=== PATIENT | male | born 1940 | race Caucasian/White ===

== ENCOUNTER → 2017-09-28 | Outpatient (CLI) | payer OTHER | LOC: M.RAD 09:53 | DX: R05 Cough (principal); R06.02 Shortness of breath; K44.9 Diaphragmatic hernia without obstruction or gangrene; Z98.890 Other specified postprocedural states ==

== ENCOUNTER → 2018-02-15 | Outpatient (CLI) | payer OTHER | LOC: M.RAD 13:15 | DX: K44.9 Diaphragmatic hernia without obstruction or gangrene (principal) ==

== ENCOUNTER 2019-02-06 20:48 | Inpatient (IN) | payer OTHER ==
[~2019-02-06] VITALS: Ht 170.2 cm; Wt 76.7 kg
--- NOTE | ~2019-02-06 | EEG ---
[address] [address] EEG STUDY REPORT Name: MISTY GARCIA Gus Room: [address] IN M.R.#: [id number] Admission: 02/06/19 Attend Phys: Edinson Rincon MD Discharge: Date of : 40 Report #: [id number] THIS REPORT FOR: //name// CC: Edinson Rincon Meño Hernandez DATE OF SERVICE: 02/07/2019 This patient is being evaluated for slurred speech. EEG was done by placing the electrode by standard 10-20 system of electrode placement. Both referential and sequential montages were used for recording. Background activity in this patient's EEG is about 10 Hz and 30 microvolt. The patient became drowsy that is associated with bilateral slowing. Photic stimulation was unremarkable. Throughout the record, no active epileptiform activity was noticed. IMPRESSION: This patient's EEG is unremarkable. Thank you very much for this referral. By: [id number] Squires MD /nt
[2019-02-06 20:59] VITALS: BP 165/96
[2019-02-06 21:15] LABS: ABSOLUTE EOSINOPHILS 0.2 thou/uL (0.0-0.7); ABSOLUTE LYMPHOCYTES 1.7 thou/uL (0.8-5.3); ABSOLUTE MONOCYTES 0.6 thou/uL (0.0-1.2); ABSOLUTE NEUTROPHILS 3.7 thou/uL (1.6-8.1); BASOPHILS 0.6 %; EOSINOPHILS 2.6 %; HEMATOCRIT 47.4 % (42.0-52.0); HEMOGLOBIN 16.5 gm/dL (14.0-18.0); LYMPHOCYTES 27.8 %; MCH 31.9 pg (26.0-34.0); MCHC 34.7 g/dL (28.0-37.0); MCV 91.9 fL (80.0-100.0); MONOCYTES 9.2 %; MPV 9.4 fl. (7.2-11.1); NUCLEATED RBCS 0 /100WBC; PLATELET COUNT* 199 thou/uL (150-400); POLYS 59.8 %; RBC 5.15 mil/uL (4.50-6.00); RDW-CV 13.2 % (10.5-14.5); WBC 6.2 thou/uL (4.0-11.0)
[2019-02-06 21:27] LABS: APTT 48.8 Seconds (25.0-31.3); INR 3.2; PROTIME 32.8 Seconds (9.20-11.50)
[2019-02-06 21:31] LABS: POTASSIUM 3.6 mmol/L (3.5-5.1)
[2019-02-06 21:36] LABS: ALBUMIN 3.8 g/dL (3.4-5.0); TOTAL BILIRUBIN 0.9 mg/dL (<0.1-1.0)
[2019-02-06] MEDS ORDERED: NORVASC5 MG PO (22:01)
[2019-02-06] MEDS ORDERED: KEPPRA750 MG PO (22:01)
[2019-02-06] MEDS ORDERED: COUMADIN 5 MG TA5 M1 PO (22:02)
[2019-02-06] MEDS ORDERED: ZONEGRAN50 MG PO (22:02)
[2019-02-06] MEDS ORDERED: PRILOSEC OTC20 MG PO (22:02)
[2019-02-06 23:42] VITALS: BP 126/86
[2019-02-07] VITALS: BP 140/83
[2019-02-07 04:00] VITALS: BP 132/80
[2019-02-07 05:21] LABS: CHOLESTEROL 220 mg/dL (<200); HDL CHOLESTEROL 48 mg/dL (>40); LDL CHOLESTEROL 148 mg/dL (<100); TC:HDL 4.6 Ratio (Not establshd); TRIGLYCERIDE 123 mg/dL (<150); VLDL 25 mg/dL (<40)
[2019-02-07 05:24] LABS: SERUM ASSESSMENT Clear
--- NOTE | 2019-02-07 06:07 | NUR ---
PT ARRIVED FROM ER AROUND MIDNIGHT. ASSESSMENT COMPLETED CHARTED. PT RESTING IN BED AT THIS TIME. NO C/O PAIN OR DISCOMFORT. NIH HAS BEEN AROUND 15 ALL NIGHT DUE TO RIGHT HEMIPARISIS, RIGHT FACIAL DROOP, AND APHASIA. ABLE TO MAKE NEEDS KNOWN WITH SOME CLARIFICATION, HARD OF HEARING. Q2TURN TO PREVENT BREAKDOWN. AT BEDSIDE, HELPING PT CALL OUT IF NEEDED. NPO DUE TO FALLED SWALLOW SCREEN. WILL CONTINUE TO MONITOR.
[2019-02-07 08:00] VITALS: BP 132/80
--- NOTE | 2019-02-07 10:19 | NUR ---
ASSUMED CARE OF PATIENT THIS AM AT 0730. PATIENT IS ALERT AND ORIENTED X 4. HE DENIES PAIN THIS AM. RIGHT SIDE FLACCID. NIH SCORE 12 THIS AM. TELE SHOWS NSR. PATIENT TURNED Q 2 HR. SPEECH THERAPY IN TO SEE PATIENT AND REGULAR DIET WITH NECTAR THICK LIQUID RECOMMENDED. PATIENT GIVEN PO MEDICATIONS WITH APPLESAUCE. IS IN AT THE BEDSIDE. DR WHITE IN TO ROUND. MRI MRA CANCELLED PATIENT IS UNABLE TO HAVE TEST. WILL CONTINUE TO MONITOR VS AND ASSESSMENTS.
--- NOTE | 2019-02-07 10:57 | EKG ---
[place] [address] ELECTROCARDIOGRAM REPORT Name: MISTY GARCIA Room: [address] ADM IN M.R.#: [id number] Admission: 02/06/19 Attend Phys: Edinson Rincon MD Discharge: Date of : 40 Report #: [id number] THIS REPORT FOR: //name// [facility] ED Test Date: 2019-02-06 Test Time: 21:13:58 Pat Name: MISTY GARCIA Department: Room: [facility] Gender: M Sound Controller: [place] : 1940 Requested By: Rian Maria Order Number: [id number] MD: Adrien Coyle Measurements Intervals [place] Rate: 70 P: 37 VA: 188 QRS: 47 QRSD: 132 T: 3 QT: 443 QTc: 479 Interpretive Statements Sinus rhythm Probable left atrial enlargement Nonspecific intraventricular conduction delay Borderline T abnormalities, inferior leads No previous ECG available for comparison Electronically Signed On 02-07-2019 10:57:13 CDT by Adrien Coyle [email or web address] <ELECTRONICALLY SIGNED> By: Adrien Coyle MD, [facility] 02/07/19 1057 12 12 Adrien Coyle MD, [facility] /EPI
--- NOTE | 2019-02-07 13:43 | 2DMMODE ---
[place] [address] 2 D/M-MODE ECHOCARDIOGRAM Name: MISTY GARCIA Room: [address] IN [facility]#: [id number] Admission: 02/06/19 Attend Phys: Edinson Rincon, Discharge: Date of : 40 Date of Service: 02/07/19 1342 Report #: [id number] THIS REPORT FOR: //name// APPROVED REPORT Study performed: 02/07/2019 11:23:25 EXAM: Comprehensive 2D, Doppler, and color-flow Echocardiogram Patient Location: In-Patient Room #: [facility] Status: routine BSA: 1.88 HR: 60 bpm BP: 132/80 mmHg Rhythm: NSR Other Information Study Quality: Good Indications CVA/TIA Echo Enhancing Agent Indication: Rule out Shunt Agent(s) / Amount(s) Used: Agitated Saline 10 cc 2D Dimensions IVSd: 8.75 (7-11mm) LVOT Diam: 21.30 (18-24mm) LVDd: 53.00 mm PWd: 11.42 (7-11mm) Ascending Ao: 38.14 (22-36mm) LVDs: 35.71 (25-40mm) Aortic Root: 38.42 mm Volumes Left Atrial Volume (Systole) LA ESV Index: 53.60 mL/m2 Aortic Valve AoV Peak Giuseppe.: 1.39 m/s AO Peak Gr.: 7.77 mmHg LVOT Max P.33 mmHg AO Mean Gr.: 4.09 mmHg LVOT Mean P.51 mmHg LVOT Max V: 0.91 m/s AO V2 VTI: 26.69 cm LVOT Mean V: 0.56 m/s REMY (VTI): 2.31 cm2 LVOT V1 VTI: 17.28 [place] [address] 2 D/M-MODE ECHOCARDIOGRAM Name: MISTY GARCIA Room: [address] IN .R.#: [id number] Admission: 02/06/19 Attend Phys: Edinson Rincon, Discharge: Date of : 40 Date of Service: 02/07/19 1342 Report #: [id number] Mitral Valve E/A Ratio: 0.53 MV Decel. Time: 242.42 ms MV E Max Giuseppe.: 0.61 m/s MV PHT: 70.30 ms MVA (PHT): 3.13 cm2 TDI E/Lateral E': 15.25 E/Medial E': 12.20 Medial E' Giuseppe.: 0.05 m/s Lateral E' Giuseppe.: 0.04 m/s Pulmonary Valve PV Peak Giuseppe.: 0.83 m/s PV Peak Gr.: 2.72 mmHg Tricuspid Valve RAP Estimate: 5.00 mmHg TR Peak Gr.: 21.80 mmHg RVSP: 26.00 mmHg PA Pressure: 26.00 mmHg Left Ventricle The left ventricle is normal size. There is normal LV segmental wall motion. There is normal left ventricular wall thickness. Left ventricular systolic function is mildly decreased. LVEF is 45-50%. Grade I - abnormal relaxation pattern. Right Ventricle Right ventricle is dilated. The right ventricular systolic function is normal. Atria Left atrium is severely dilated. Interatrial septum is intact without evidence of ASD or PFO. The right atrium size is normal. Aortic Valve Mild aortic valve sclerosis. Mild aortic regurgitation. There is no aortic valvular stenosis. Mitral Valve There is a mechanical mitral valve. There is no mitral valve regurgitation noted. No evidence of mitral valve stenosis. Tricuspid Valve The tricuspid valve is normal in structure. Trace tricuspid regurgitation. [place] [address] 2 D/M-MODE ECHOCARDIOGRAM Name: MISTY GARCIA Room: [address] IN [facility]#: [id number] Admission: 02/06/19 Attend Phys: Edinson Rincon, Discharge: Date of : 40 Date of Service: 02/07/19 1342 Report #: [id number] Pulmonic Valve The pulmonary valve is normal in structure. Trace pulmonic regurgitation. Great Vessels Aortic root is mildly dilated. IVC is normal in size and collapses >50% with inspiration. Pericardium There is no pericardial effusion. <Conclusion> LVEF is 45-50%. Left atrium is severely dilated. Mild aortic regurgitation. Interatrial septum is intact without evidence of ASD or PFO. There is a mechanical mitral valve. <ELECTRONICALLY SIGNED> By: Adrien Coyle MD, FACC 02/07/19 1342 134 134 Adrien Coyle MD, FACC /INF
--- NOTE | 2019-02-07 14:17 | NUR ---
ASSOCIATE SOFTWARE DEVELOPMENT ENGINEER: MET WITH PATIENT AND FAMILY PRESENT IN ROOM REGARDING STROKE PROGRAM. WILL FOLLOW.
--- NOTE | 2019-02-07 15:58 | NUR ---
Pt is A&O. Resides at home with his . Normally independent. No DME. Hx of HH, no hx of SNF. Therapy evals pending, Pt will likely need rehab at pr. Following.
[2019-02-07 16:00] VITALS: BP 141/81
--- NOTE | 2019-02-07 16:45 | NUR ---
I have reviewed the documentation by CHARLINE SPENCER from TODAY to 02/07/19 and I concur with it. MALAIKA PALMER
[2019-02-07 18:16] LABS: URINE BILIRUBIN NEGATIVE (Negative); URINE BLOOD TRACE (Negative); URINE CLARITY CLEAR; URINE COLOR YELLOW; URINE GLUCOSE-RANDOM NEGATIVE (Negative); URINE KETONES NEGATIVE (Negative); URINE LEUKOCYTES NEGATIVE (Negative); URINE NITRITE NEGATIVE (Negative); URINE PROTEIN NEGATIVE (Negative); URINE SPECIFIC GRAVITY 1.015 (1.005-1.030); URINE UROBILINOGEN 0.2 E.U./dl (0.2-1.0)
[2019-02-07 19:11] LABS: AMP/METHAMP Negative (Negative); BARBITURATES Negative (Negative); BENZODIAZEPINES Negative (Negative); COCAINE Negative (Negative); METHADONE Negative (Negative); OPIATES Negative (Negative); PCP Negative (Negative); THC Negative (Negative)
[2019-02-07 20:00] VITALS: BP 157/91
[2019-02-08] VITALS: BP 139/89
[2019-02-08 04:00] VITALS: BP 142/79
[2019-02-08 04:34] LABS: ABSOLUTE EOSINOPHILS 0.1 thou/uL (0.0-0.7); ABSOLUTE MONOCYTES 0.5 thou/uL (0.0-1.2); ABSOLUTE NEUTROPHILS 3.9 thou/uL (1.6-8.1); BASOPHILS 0.6 %; EOSINOPHILS 2.5 %; HEMATOCRIT 46.9 % (42.0-52.0); LYMPHOCYTES 18.5 %; MCH 31.6 pg (26.0-34.0); MCHC 34.2 g/dL (28.0-37.0); MCV 92.5 fL (80.0-100.0); MONOCYTES 9.1 %; MPV 9.7 fl. (7.2-11.1); NUCLEATED RBCS 0 /100WBC; PLATELET COUNT* 185 thou/uL (150-400); POLYS 69.3 %; RBC 5.07 mil/uL (4.50-6.00); RDW-CV 12.8 % (10.5-14.5); WBC 5.6 thou/uL (4.0-11.0)
[2019-02-08 04:41] LABS: CALCIUM 8.5 mg/dL (8.5-10.1); CREATININE 0.8 mg/dL (0.6-1.3); MAGNESIUM 2.1 mg/dL (1.8-2.4); POTASSIUM 3.5 mmol/L (3.5-5.1); PROTIME 30.1 Seconds (9.20-11.50)
--- NOTE | 2019-02-08 05:03 | NUR ---
ASSUMED PT CARE AT 1930. ASSESSMENT COMPLETED CHARTED. ABLE TO MAKE NEEDS KNOWN WITH THE HELP OF AT BEDSIDE. RIGHT SIDE HEMIPARISIS, UNABLE TO LIFT RIGHT LEG OR ARM. RIGHT FOOT IN BOOT TO HELP WITH DROP. [id number] COMPLETED CHARTED. VSS. NIH AT A 13 FOR ME DUE TO WONDERING VISION, OTHERWISE THE SAME EARLIER SHIFT. PT RESTING IN BED AT THIS TIME. NO C/O PAIN OR DISCOMFORT. WILL CONTINUE TO MONITOR.
[2019-02-08 10:00] VITALS: BP 134/86
[2019-02-08 11:28] VITALS: BP 148/89
--- NOTE | 2019-02-08 15:39 | NUR ---
ASSUMED CARE OF PT AROUND 0730 THIS AM. REFER TO ASSESSMENT. REHAB CONSULTED. PT COMPLETED THERAPY WITH PT AND OT. CT HEAD COMPLETED THIS EVENING. REFER TO RESULTS. PT REQUIRED MAX ASSIST X2 WITH GAIT BELT FOR TRANSFER TO BED FROM CHAIR. CHANGED MEDS FROM IV TO ORAL D/T PT TOLERATING ORAL INTAKE WELL. NO OTHER CONCERNS AT THIS TIME. CLWR. WCTM.
[2019-02-08 16:02] VITALS: BP 146/88
--- NOTE | 2019-02-08 16:19 | NUR ---
Spoke with , anticipate dc to rehab tomorrow. Updated rehab services aide, liaison to initiate ins auth. Following.
[2019-02-08 20:00] VITALS: BP 146/95
[2019-02-08 23:08] LABS: GLYCOHEMOGLOBIN (HGB A1C) 5.5 % (4.8-5.6)
[2019-02-09 00:10] VITALS: BP 130/78
[2019-02-09 04:13] VITALS: BP 143/75
[2019-02-09 05:45] LABS: INR 2.2; PROTIME 22.1 Seconds (9.20-11.50)
--- NOTE | 2019-02-09 06:07 | NUR ---
ASSUMED PT CARE AT 1930. ASSESSMENT COMPLETED CHARTED. ABLE TO MAKE NEEDS KNOWN. SLURRED SPEECH, RIGHT HEMIPARESIS, AND PARTIAL VISION DRIFT. PT STARTED STATING THAT HIS RIGHT ARM WAS HURTING AND FELT LIKE HIS "WRIST WAS SPRAINED". GAVE TYLENOL WITH PARTIAL RELIEF. NIH STILL A 13. WORKING WITH PT/OT/ST. PT BROTHER STAYED THE NIGHT. PT RESTING IN BED AT THIS TIME BUT HAS STATED HE WAS UNCOMFORTABLE IN BED MOST OF THE NIGHT. Q2 TURNS COMPLETED CHARTED. WILL CONTINUE TO MONITOR.
[2019-02-09 10:50] VITALS: BP 129/89
--- NOTE | 2019-02-09 11:41 | NUR ---
BRASS PICKLER RECIEVED A CALL FROM [facility] TRANSITION OF CARE SPECIALIST AND SHE INFORMS THAT SHE HAS RECEIVED INSURANCE AUTH FOR THE PATIENT TO ADMIT TO THE ACUTE INPATIENT REHAB UNIT, BUT WILL NEED TO WAIT FOR A BED TO BECOME AVAILABLE. POSSIBLY TODAY AFTER TEAM CONFRENCE DEPENDING ON DISCHARGES AFTER THE MEETING. CM WILL REMAIN AVAILABLE TO ASSIST AND FOLLOW NEEDED.
[2019-02-09 12:00] VITALS: BP 125/78
[2019-02-09 16:00] VITALS: BP 149/87
--- NOTE | 2019-02-09 17:42 | NUR ---
assumed pt care at 0730, full assesment done as charted. pt a/o x4, still having slurring of speech and right side paresis. NIH done as charted. Pts VSS, Sb-SR/BBB on the monitor. pt tearful throughout this shift. pts family at bedside most of the day. Pt does not have much of an apitite. up to chair today, did not tolerated sitting in chair for very long. pt turned Q2 hrs. fall precautions in place. will continue with plan of care
[2019-02-09 20:00] VITALS: BP 133/83
[2019-02-10] VITALS: BP 132/81
[2019-02-10 04:00] VITALS: BP 121/85
[2019-02-10 05:44] LABS: INR 2.2; PROTIME 22.9 Seconds (9.20-11.50)
--- NOTE | 2019-02-10 05:44 | NUR ---
PATIENT SLEPT PART OF THE NIGHT. IV REMAINS SALINE LOCKED. PATIENT WAS GIVEN TYLENOL ONCE FOR PAIN. PATIENT WAS TURNED ABOUT EVERY TWO HOURS. PATIENT PREFERS TO TURN TO HIS LEFT SIDE ONLY. REMAINS AT BEDSIDE. WILL CONTINUE TO MONITOR.
[2019-02-10 05:59] LABS: CALCIUM 8.7 mg/dL (8.5-10.1); CREATININE 0.9 mg/dL (0.6-1.3); POTASSIUM 3.7 mmol/L (3.5-5.1)
[2019-02-10 09:01] VITALS: BP 137/85
--- NOTE | 2019-02-10 09:39 | NUR ---
Following for d/c planning needs. cycle liaison said she has received insurance authorization for pt to admit to inpatient rehab and said they will have a bed later today. Plan is for pt to d/c inpatient rehab today if medically stable.
--- NOTE | 2019-02-10 10:57 | NUR ---
PORT CAPTAIN: MET WITH PATIENT AND TODAY. DISCUSSED REHAB PLANS AND POST REHAB. PROVIDED INFORMATION REGARDING [facility] PROGRAM. PATIENT SITTING IN CHAIR. LOOKING FORWARD TO REHAB. BOTH UNDERSTAND PLAN OF CARE.
[2019-02-10 11:30] VITALS: BP 134/92
[2019-02-10 12:23] VITALS: BP 134/92
[2019-02-10] MEDS ORDERED: DOK PLUS TABLE1 EACH PO (12:41)
[2019-02-10] MEDS ORDERED: ASPIRIN EC81 M1 PO (12:41)
[2019-02-10] MEDS ORDERED: LIPITOR40 MG PO (12:41)
--- NOTE | 2019-02-10 12:58 | NUR ---
ASSUMED CARE OF PT AROUND 0730 THIS AM. REFER TO ASSESSMENT. PT ANTICIPATED TO DC TO REHAB UNIT THIS AFTERNOON. WAITING FOR AN OPEN BED AT THIS TIME. UP TO CHAIR FOR MEALS. PT DID HAVE A BOWEL MOVEMENT THIS SHIFT. NO OTHER CONCERNS AT THIS TIME. CLWR. WCTM.
[2019-02-10 16:00] VITALS: BP 125/87
== END 2019-02-10 18:30 | DRG 65 ==
LOC: M.ERS 20:48 → M.2W 23:19 → M.TBA-ER 23:19 → M.2W 02-07
PROVIDERS: Family Medicine; Psychiatry & Neurology Neurology; ADMIT Internal Medicine
DX: I63.9 Cerebral infarction, unspecified (principal); G81.01 Flaccid hemiplegia affecting right dominant side; I10 Essential (primary) hypertension; R47.1 Dysarthria and anarthria; G40.909 Epilepsy, unspecified, not intractable, without status epilepticus; E78.5 Hyperlipidemia, unspecified; Z79.82 Long term (current) use of aspirin; Z79.899 Other long term (current) drug therapy; Z82.3 Family history of stroke; Z95.2 Presence of prosthetic heart valve; Z80.1 Family history of malignant neoplasm of trachea, bronchus and lung

== ENCOUNTER 2019-02-10 13:26 | Inpatient (IN) | payer OTHER ==
[~2019-02-10] VITALS: Ht 180.3 cm; Wt 79.2 kg
[~2019-02-10 13:26] MED LIST: ASPIRIN EC81 M1 PO; COUMADIN 5 MG TA5 M1 PO; DOK PLUS TABLE1 EACH PO; KEPPRA750 MG PO; LIPITOR40 MG PO; NORVASC5 MG PO; PRILOSEC OTC20 MG PO; ZONEGRAN50 MG PO
[2019-02-10 18:45] VITALS: BP 144/91
--- NOTE | 2019-02-11 02:26 | NUR ---
ASSUMED CARE @ 1929-02/10-.AWAKE IN BED W/ HOB UP VISITING W/ FRIENDS. WEARING RIGHT PRAFO BOOT & RIGHT LE UP ON A PILLOW. STAYING ALL NIGHT. HAS C PAP @ BEDSIDE BUT SAYS LONG HOB UP @ NIGHT-IT'S OKAY NOT TO USE C PAP.ADMITTED A 78 YEAR OLD MALE W/ CVA.CAME TO UNIT @ 184.RIGHT HAND DOMINANT.SPEECH-SLURRED.FLACCID-RUE & RLE.RIGHT UPPER EYE LID DROOPY & HAS DYSPHAGIA.RUE ON A PILLOW.MILD EDEMA-RIGHT HAND & RIGHT FINGERS.SCD'S ON.PRN TYLENOL 2 TABS GIVEN ORAL @ 2355 FOR GENERALIZED DIS- COMFORT.TAKES MEDS WHOLE ONE @ A TIME W/ APPLE SAUCE FOLLWED W/ NECTAR THICK JUICE. PUTS,HOLDS,REMOVES & EMPTIES URINAL @ NIGHT. 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
[2019-02-11 07:30] LABS: HEMATOCRIT 47.8 % (42.0-52.0); HEMOGLOBIN 16.8 gm/dL (14.0-18.0); MCH 32.3 pg (26.0-34.0); MCHC 35.1 g/dL (28.0-37.0); MCV 91.9 fL (80.0-100.0); MPV 9.6 fl. (7.2-11.1); RBC 5.2 mil/uL (4.50-6.00); RDW-CV 13.2 % (10.5-14.5); WBC 5.9 thou/uL (4.0-11.0)
[2019-02-11 07:37] LABS: CALCIUM 9.5 mg/dL (8.5-10.1); CREATININE 1.1 mg/dL (0.6-1.3); POTASSIUM 3.7 mmol/L (3.5-5.1)
--- NOTE | 2019-02-11 07:42 | NUR ---
AT 0410-C/O SOB.O2 SAT-92 %.O2 2L/NC PUT ON.STARTED IS @ 0600.WANTS TO USE BSC FOR BM.TRANSFERED W/ 3 PERSONS @ 0650.SITTING & STANDING BALANCE-STEADY.HAD LARGE BM.LAKESHIA CARE DONE BY RN.VOIDED 100 ML PER URINAL @ 0600.BLADDER SCAN FOR 82 ML.LAB DRAW BLOOD @ 0700.
[2019-02-11 08:20] VITALS: BP 134/88
[2019-02-11 12:31] LABS: URINE BILIRUBIN NEGATIVE (Negative); URINE BLOOD TRACE (Negative); URINE CLARITY CLEAR; URINE COLOR DARK YELLOW; URINE GLUCOSE-RANDOM NEGATIVE (Negative); URINE KETONES NEGATIVE (Negative); URINE LEUKOCYTES-REFLEX NEGATIVE (Negative); URINE NITRITE-REFLEX NEGATIVE (Negative); URINE PROTEIN NEGATIVE (Negative); URINE SPECIFIC GRAVITY 1.025 (1.005-1.030); URINE UROBILINOGEN 0.2 E.U./dl (0.2-1.0)
--- NOTE | 2019-02-11 13:14 | NUR ---
Nutrition: Consult for new rehab pt. Wt today entered as 128# - error. Accurate wt is 170#. Admitted with CVA. H/o HTN, seizure disorder. Heart Healthy diet with [place] thickened. +BM. RX: warfarin, aspirin, lax. BG 135, albumin 3.8. Eating 75% of meals. Pt appears at low nutrition risk. Will follow weekly.
--- NOTE | 2019-02-11 15:43 | NUR ---
SW met with pt and pt and pt dtr in law to complete initial assessment, introduce self, and SW role on inpt rehab unit. Pt alert, oriented. Pt lives at home with his . Pt was independent and active prior to CVA. No DME, no hx SNF, hx HH. Pt and family unsure of dc needs at this time. SW to continue to follow to assist with safe dc planning.
--- NOTE | 2019-02-11 18:01 | NUR ---
AM ASSESSMENT AND VITAL SIGNS COMPLETED DOCUMENTED. PT WORKED WITH ALL THERAPIES TODAY, HAS A POSITIVE ATTITUDE AND IS VERY COOPERATIVE. PT'S WAS HERE TODAY AND IS VERY HELPFUL BUT SHE HAS GONE HOME FOR THE NIGHT. PT INSTRUCTED ON USE OF CALL LIGHT AND WILL BE CHECKED ON FREQUENTLY.
--- NOTE | 2019-02-11 19:35 | NUR ---
SITTING UP IN RECLINER. SEVERAL VISITORS IN ROOM. DENIES DISCOMFORT. TOOK MEDICATIONS WHOLE ONE AT A TIME WITH VANILLA PUDDING FOLLOWED WITH NECTAR THICKENED CRANBERRY JUICE. SPEECH SLIGHTLY SLURRED AND QUIET BUT COMMUNICATED EFFECTIVELY. CALL LIGHT WITHIN REACH.
[2019-02-11 19:54] VITALS: BP 129/83
[2019-02-12 02:46] LABS: PROTIME 30.8 Seconds (9.20-11.50)
[2019-02-12 07:56] VITALS: BP 122/80
--- NOTE | 2019-02-12 17:33 | NUR ---
pt has been up to recliner with waffel cushion inplace and is repositioned q2 hour and prn. prn for general aches given this morning with good effect. sling inplace to rt, arm and pt states it is comfortable.pt transferrs with mod assist if 1-2 with queing.pt has been continent of bladder useing urinal. pt drinks nector thick liquids. pt is alert and orientated and able to make needs known.
--- NOTE | 2019-02-12 19:35 | NUR ---
RESTING QUIETLY IN BED. CALL LIGHT WITHIN REACH. DENIES DISCOMFORT. TOOK MEDICATIONS WHOLE WITH CHOCOLATE PUDDING.
[2019-02-12 20:09] VITALS: BP 139/91
[2019-02-13 04:58] LABS: INR 3.7; PROTIME 37.5 Seconds (9.20-11.50)
--- NOTE | 2019-02-13 05:23 | NUR ---
RESTED QUIETLY. ASSISTED WITH USING THE URINAL AND REPOSITIONING. LEG BRACE TO RLE INTACT. PROVIDED WITH NECTAR THICKENED LIQUIDS. HOURLY ROUNDING IN PROGRESS.
[2019-02-13 08:30] VITALS: BP 121/78
--- NOTE | 2019-02-13 18:56 | NUR ---
pt transferrs with queingand assist of 1 with 1 standby.pt makes statements of i didn't think i would have to depend on someone and is tearfull. also has voiced concerns. notified today with request to notify hims for orders. notified with orders given. pt remains continent of b+b useing urinal and assisted to toilet as needed. pt remains alert and orientated.
[2019-02-13 19:30] VITALS: BP 161/83
--- NOTE | 2019-02-13 20:10 | NUR ---
SITTING UP IN BED. SPEECH QUIET AND SLIGHTLY SLURRED BUT COMMUNICATES EFFECTIVELY. TOOK MEDICATIONS WHOLE WITH CHOCOLATE PUDDING FOLLOWED BY NECTAR THICKENED CRANBERRY JUICE. RIGHT LOWER LEG BRACE IN PLACE.
[2019-02-14 04:33] LABS: INR 3.4; PROTIME 34.3 Seconds (9.20-11.50)
--- NOTE | 2019-02-14 05:03 | NUR ---
ASSISTED WITH THE URINAL AND REPOSITIONING THROUGHOUT THE NIGHT. TYLENOL GIVEN PER REQUEST FOR COMPLAINT OF SORE NECK WITH RELIEF. HOURLY ROUNDING IN PROGRESS.
[2019-02-14 08:26] VITALS: BP 124/79
--- NOTE | 2019-02-14 13:48 | NUR ---
I have reviewed the documentation by CHARLINE SPENCER from TODAY to 02/14/19 and I concur with it. MALAIKA PALMER
--- NOTE | 2019-02-14 17:05 | NUR ---
AM ASSESSMENT AND VITAL SIGNS COMPLETED DOCUMENTED. PT TRANSFERS WITH MOD ASSIST OF TWO, RIGHT SIDE REMAINS FLACCID WITH RIGHT ARM IN A SLING FOR COMFORT. PT ADVANCED TO THIN LIQUIDS BY SPEECH THERAPIST. PT HAS BEEN CONTINENT OF BOWEL AND BLADDER. FALL PRECAUTIONS AND HOURLY ROUNDING CONTINUE.
[2019-02-14 19:30] VITALS: BP 145/84
[2019-02-15 04:47] LABS: INR 2.3; PROTIME 23.7 Seconds (9.20-11.50)
--- NOTE | 2019-02-15 05:15 | NUR ---
ASSUMED CARES AT 1920. ALERT AND ORIENTED. PLEASANT. CVA WITH RIGHT SIDE HEMIPARESIS. SLURRED SPEECH AT TIMES. RIGHT ARM SLING. MAX ASSIST X 2 PERSON GAIT BELT. STAND AND PIVOT. PRAFO BOOT TO RLE. NEEDS MUCH ASSIST WITH RIGHT FOOT DURING TRANSFERS. PILLS GIVEN IN PUDDING. TYLENOL GIVEN FOR NECK DISCOMFORT. USED URINAL WITH NURSE ASSIST. PT TURNED IN BED WHEN AGREEABLE. SLEPT OFF AND ON. CALL LIGHT IN REACH AND BED ALARM ON.
[2019-02-15 07:58] VITALS: BP 125/78
--- NOTE | 2019-02-15 14:59 | NUR ---
I have reviewed the documentation by CHARLINE SPENCER from TODAY to 02/15/19 and I concur with it. MALAIKA PALMER
--- NOTE | 2019-02-15 18:36 | NUR ---
AM ASSESSMENT AND VITAL SIGNS COMPLETED DOCUMENTED. PT PARTICIPATED WITH ALL THERAPIES, HE IS VERY MOTIVATED TO PROGRESS. PT'S ASSISTS WITH SOME BASIC CARE BUT PT IS ABLE TO FEED HIMSELF, PROPEL HIS WHEELCHAIR SHORT DISTANCES AND HOLD THE URINAL DURING URINATION. FALL PRECAUTIONS AND HOURLY ROUNDING IN PLACE.
--- NOTE | 2019-02-15 19:30 | NUR ---
SITTING UP IN CHAIR. CALL LIGHT WITHIN REACH. SPEECH SLIGHTLY SLURRED AND SOFT BUT COMMUNICATES EFFECTIVELY. NO COMPLAINTS VOICED.
[2019-02-15 20:00] VITALS: BP 144/77
--- NOTE | 2019-02-16 05:00 | NUR ---
RESTED QUIETLY. ASSISTED WITH URINAL X ONE DURING THE NIGHT. HOURLY ROUNDING IN PROGRESS.
[2019-02-16 05:30] LABS: INR 2.7; PROTIME 27.3 Seconds (9.20-11.50)
[2019-02-16 08:36] VITALS: BP 122/71
--- NOTE | 2019-02-16 15:23 | NUR ---
I have reviewed the documentation by CHARLINE SPENCER from TODAY to 02/16/19 and I concur with it. MALAIKA PALMER
--- NOTE | 2019-02-16 16:31 | NUR ---
MAMTA and Dr Camejo met with pt and pt to review team conference summary and plan for pt to remain on rehab unit and continue therapies at least another week with team to reassess pt length of stay during team conference next Thursday. Pt and pt in agreement with plan. SW to continue to follow to assist with safe dc planning.
--- NOTE | 2019-02-16 19:45 | NUR ---
SITTING UP IN CHAIR WATCHING TV. DENIES DISCOMFORT. HAS RIGHT HEMIPARESIS. FLACCID ON THE RIGHT BUT STARTING TO GET SOME MOVEMENT IN RIGHT ARM. SPEECH IS SLURRED AND SOFT BUT COMMUNICATES EFFECTIVELY. TOOK MEDICATION WHOLE WITH APPLESAUCE. CALL LIGHT WITHIN REACH.
[2019-02-16 20:05] VITALS: BP 137/63
--- NOTE | 2019-02-17 05:30 | NUR ---
UP TO THE TOILET WITH ASSIST OF TWO LAST NIGHT. HAD A BM. LAKESHIA CARE GIVEN BY STAFF. ASSISTED WITH THE URINAL. ASSISTED WITH REPOSITIONING. HOURLY ROUNDING IN PROGRESS.
--- NOTE | 2019-02-17 13:14 | NUR ---
AM ASSESSMENT AND VITAL SIGNS COMPLETED DOCUMENTED. PT REMAINS FLACCID ON THE RIGHT SIDE, ASSIST OF TWO STAFF FOR TRANSFERS. PT WILL BE RECEIVING A RIGHT HAND SPLINT AND A RIGHT AFO. PT FEEDS HIMSELF AFTER SET UP. FALL PRECAUTIONS AND HOURLY ROUNDING CONTINUE.
--- NOTE | 2019-02-17 15:18 | NUR ---
I have reviewed the documentation by CHARLINE SPENCER from TODAY to 02/17/19 and I concur with it. MALAIKA PALMER
[2019-02-17 20:15] VITALS: BP 152/74
--- NOTE | 2019-02-18 01:02 | NUR ---
ASSUMED CARE @ 1936-02/17-.AWAKE IN BED W/ LE'S UP & RUE ELEVATED ON 2 PILLOWS.MALE FRIEND VISITING @ THIS TIME.CHAIR ALARM ALREADY ON @ 1936. BRP PER W/C @ 2029 W/ 2 PERSONS ASSISTING.PASSED GAS ONLY.SPEECH-CLEARING. SOME MOVEMENT RUE.RIGHT LE-FLACCID.STANDING BALANCE-STEADY.TO BED @ 2036. HOB UP.SCD'S PUT ON.PRAFO BOOT APPLIED TO RIGHT FOOT & ELEVATED ON A PILLOW.BED ALARM PUT ON @ 2036.EDEMA-RIGHT HAND & RIGHT FINGERS.TAKES MEDS WHOLE IN VANILLA PUDDING.C PAP APPLIED ON @ 2154.ON HOURLY ROUNDS.WANTS TO BE TURNED Q 2 HOURS BUT NOT TO AWAKEN @ -02/18-THURSDAY.
[2019-02-18 04:21] LABS: INR 3.2; PROTIME 32.1 Seconds (9.20-11.50)
--- NOTE | 2019-02-18 05:55 | NUR ---
SLEEPING SINCE 2200 & slept good all night.refused hs snack.used urinal w/ assist x1.BRP PER W/C X2-BUT NO BM.JUST PASSED GAS.
[2019-02-18 08:00] VITALS: BP 141/69
--- NOTE | 2019-02-18 15:52 | NUR ---
AM ASSESSMENT AND VITAL SIGNS COMPLETED DOCUMENTED. PT HAS PARTICIPATED WITH PT, OT AND ST TODAY. PT IS FRUSTRATED AT TIMES WITH HIS PHYSICAL DEFECITS, ENCOURAGEMENT AND REASSURANCE PROVIDED. [facility] DELIVERED THE HAND SPLINT TODAY AND EXPECT TO DELIVER THE AFO ON THURSDAY. FALL PRECAUTIONS AND HOURLY ROUNDING CONTINUE.
--- NOTE | 2019-02-18 16:19 | NUR ---
I have reviewed the documentation by CHARLINE SPENCER from TODAY to 02/18/19 and I concur with it. MALAIKA PALMER
[2019-02-18 21:30] VITALS: BP 140/79
--- NOTE | 2019-02-19 02:13 | NUR ---
ASSUMED CARE @ 1917-02/18-THURSDAY.SITS IN RECLINER VISITING W/ BROTHER.RUE UP ON 2 PILLOWS.CHAIR ALARM ALREADY ON @ 1917.BRP PER W/C W/ 2 PERSONS @ 2054.SLING PUT ON RUE BEFORE TRANSFER.HOB UP IN BED.SCD'S,PRAFO BOOT RIGHT LE & RIGHT HAND SPLINT ALL APPLIED @ 2109.RLE UP ON A PILLOW.BED ALARM PUT ON @ 2109. ALL HS MEDS GIVEN W/ VANJONI PUDDING.ON HOURLY ROUNDS.
[2019-02-19 03:56] LABS: ABSOLUTE EOSINOPHILS 0.1 thou/uL (0.0-0.7); ABSOLUTE LYMPHOCYTES 1.2 thou/uL (0.8-5.3); ABSOLUTE MONOCYTES 0.5 thou/uL (0.0-1.2); ABSOLUTE NEUTROPHILS 3.8 thou/uL (1.6-8.1); BASOPHILS 0.5 %; EOSINOPHILS 2.2 %; HEMATOCRIT 42.9 % (42.0-52.0); HEMOGLOBIN 15.1 gm/dL (14.0-18.0); LYMPHOCYTES 20.4 %; MCH 30.9 pg (26.0-34.0); MCHC 35.2 g/dL (28.0-37.0); MCV 87.7 fL (80.0-100.0); MONOCYTES 9.7 %; MPV 9.4 fl. (7.2-11.1); NUCLEATED RBCS 0 /100WBC; PLATELET COUNT* 198 thou/uL (150-400); POLYS 67.2 %; RBC 4.89 mil/uL (4.50-6.00); WBC 5.7 thou/uL (4.0-11.0)
[2019-02-19 04:11] LABS: CALCIUM 9.1 mg/dL (8.5-10.1); CREATININE 0.9 mg/dL (0.6-1.3); INR 2.7; POTASSIUM 3.5 mmol/L (3.5-5.1); PROTIME 27.4 Seconds (9.20-11.50)
--- NOTE | 2019-02-19 05:07 | NUR ---
SLEEPING SINCE 2300 & SLEPT GOOD ALL NIGHT.REFUSED HS SNACK.USED URINAL X1. BRP PER W/C X1.NO BM.NOTED RED LEFT GROIN.WILL ASK FOR ORDER FOR NYSTATIN POWDER.
[2019-02-19 08:26] VITALS: BP 144/79
--- NOTE | 2019-02-19 17:37 | NUR ---
I ASSUMED CARE OF THE PATIENT AT 0700. HE IS ALERT AND ORIENTED X4 AND IS UP WITH MAX ASSIST OF 2, WALKER, GAITBELT, AND SLING ON RIGHT ARM. BED IS IN THE LOW LOCKED POSITION AND CALL LIGHT IS IN REACH. IS AT THE BEDSIDE. BED ALARM IS ON. HOURLY ROUNDING IS COMPLETED AND PATIENT NEEDS ARE MET. PAIN IS DENIED. PATIENT IS PROGRESSING TOWARDS HIS GOALS. WILL CONTINUE TO MONITOR. LOTS OF VISITORS TODAY AND SPIRITS ARE UP. HE PARTICIPATED IN THERAPY.
[2019-02-19 20:00] VITALS: BP 117/70
--- NOTE | 2019-02-20 05:18 | NUR ---
ASSUMED CARE AT 1920. ALERT AND ORIENTED. PLEASANT. RIGHT SIDE WEAKNESS. TYLENOL GIVEN FOR NECK PAIN. PILLS WHOLE IN PUDDING. MOD ASSIST X 1 PERSON. GAIT BELT. STAND AND PIVOT. UP TO BATHROOM OR USES URINAL WITH ASSIST. NYSTATIN POWDER TO GROIN REDNESS. RIGHT PRAFO BOOT AND RIGHT HAND SPLINT IN PLACE. PT TURNED ONTO SIDE WHEN AGREEABLE. SLEPT OFF AND ON. CALL LIGHT IN REACH AND BED ALARM ON.
[2019-02-20 08:00] VITALS: BP 139/72
--- NOTE | 2019-02-20 17:57 | NUR ---
PATIENT HAS BEEN A/O X 4 THIS SHIFT. HAS DENIED PAIN WHEN ASKED. UP IN CHAIR FOR MOST OF SHIFT. PATIENT UP MOD ASSIST OF 1 TO CHAIR WITH RIGHT ARM IN SLING. PATIENT ABLE TO STAND/PIVOT. PATIENT TAKEN TO BR IN WHEELCHAIR, UTILIZING GRAB BAR AND STAND/PIVOT TO TOILET. PATIENT NEEDING MODERATE ASSIST WITH LAKESHIA-CARE AND CLOTHING ADJUSTMENT DUE TO RIGHT ARM BEING WEAK. PATIENT TO DINING ROOM FOR LUNCH, APPETITE FAIR. TAKES PILLS IN PUDDING. PATIENT'S ASSISTED PATIENT WITH BATHING AND GROOMING THIS SHIFT. BED/CHAIR ALARMS IN PLACE. HOURLY ROUNDING COMPLETED. CALL LIGHT WITHIN REACH. WILL CONTINUE WITH PLAN OF CARE.
[2019-02-20 19:00] VITALS: BP 154/82
--- NOTE | 2019-02-21 05:29 | NUR ---
ASSUMED CARES AT 1920. ALERT AND ORIENTED X 4. PLEASANT. RIGHT SIDE WEAKNESS. C/O NECK PAIN AND SO TYLENOL GIVEN. PILLS WHOLE IN PUDDING. CPAP AT NIGHT. MOD ASSIST WITH GAIT BELT. STAND AND PIVOT. NURSING ASSISTED WITH URINAL. NYSTATIN POWDER TO LEFT GROIN WHICH IS IMPROVING. PT REFUSED TO TURN ONTO SIDE OVERNIGHT. RLE PRAFO BOOT AND NASH SPLINT IN BED. SLEPT WELL. CALL LIGHT IN REACH AND BED ALARM ON.
[2019-02-21 06:29] LABS: INR 2.9; PROTIME 28.4 Seconds (9.20-11.50)
[2019-02-21 08:29] VITALS: BP 140/78
--- NOTE | 2019-02-21 15:44 | NUR ---
ASSESSMENT COMPLETE. PT ALERT AND ORIENTED X4. PT DENIES PAIN. TOLERATING MEALS. PT HAS AT BEDSIDE THROUGHOUT THE DAY. PT IN CHAIR DURING THE DAY. PT EATS MEALS IN DINING ROOM. PT PASSED BEDSIDE SWALLOW WITH ST, ABLE TO TAKE MEDICATIONS WHOLE WITH WATER. PT USES URINAL NEEDED. NYSTATIN POWDER APPLIED TO GROIN AREA FOR REDNESS. PT IS UP 2 ASSIST WITH TRANSFERS. PT RIGHT LEG FLACCID. SEE ASSESSMENT AND VITALS FOR OTHER DETAILS. CALL LIGHT WITHIN REACH, WILL CONTINUE PLAN OF CARE
[2019-02-21 20:40] VITALS: BP 153/72
--- NOTE | 2019-02-22 05:40 | NUR ---
ALERT AND ORIENTED. PLEASANT. CVA WITH RIGHT HEMIPARESIS. NASH SLING WHEN OOB. MAX X 2 PERSON GAIT BELT. STAND AND PIVOT. RIGHT LEG SPLINT. PILLS WITH PUDDING. TYLENOL GIVEN FOR NECK/BACK PAIN. NOW PINK TO GROIN, NYSTATIN APPLIED. CPAP AT NIGHT. NEEDS ASSIST WITH URINAL. PT TURNED ONTO SIDE WHEN AGREEABLE. SLEPT MOST OF THE NIGHT. CALL LIGHT IN REACH AND BED ALARM ON.
[2019-02-22 07:59] VITALS: BP 155/74
--- NOTE | 2019-02-22 18:52 | NUR ---
AM ASSESSMENT AND VITAL SIGNS COMPLETED DOCUMENTED. PT VERY COOPERATIVE, CONTINUES TO PROGRESS. FALL PRECAUTIONS AND HOURLY ROUNDING CONTINUE.
[2019-02-22 19:30] VITALS: BP 136/69
--- NOTE | 2019-02-23 05:14 | NUR ---
ASSUMED PT CARE AT 1930. PT ALERT AND ORIENTED X4, POLITE AND COOPERATIVE WITH CARES. CVA WITH RIGHT HEMIPARESIS. PT SITTING UP IN RECLINER AT SHIFT CHANGE. TO BATHROOM TO VOID WITH MAX ASSIST OF 2, GAIT BELT, WHEELCHAIR AND STAND/PIVOT. PT WEARS RIGHT LEG SPLINT. NASH SLING WHEN OUT OF BED. TAKES PILLS WHOLE IN PUDDING. TYLENOL WITH EVENING MEDS PER PT REQUEST. PRAFO BOOT TO RIGHT FOOT OVERNIGHT. SCD'S BILATERALLY PER PT REQUEST. WEARS HOME CPAP AT NIGHT. PT NEEDS ASSIST WITH PLACEMENT AND EMPTYING OF URINAL. PT TURNED ON SIDE WHEN AGREEABLE. PT SLEPT WELL OVERNIGHT. CALL LIGHT WITHIN REACH. BED ALARM ON FOR SAFETY. HOURLY ROUNDING IN PROGRESS, WILL CONTINUE TO MONITOR.
[2019-02-23 08:41] VITALS: BP 137/79
--- NOTE | 2019-02-23 14:27 | NUR ---
MAMTA and Dr Camejo met with pt and pt to review team conference summary and plan for pt to remain on rehab unit at least another week with team to reassess pt length of stay during team conference on next Friday 03/02. Pt and pt in agreement with plan. SW to continue to follow to assist with safe dc planning.
--- NOTE | 2019-02-23 16:59 | NUR ---
PT HAS CALLED FOR ASSIST WITH ALL TRANSFERRS WITH 1 PERSON AND IS STRONG ON LT LEG. AFO INPLACE TO RT.FOOT PT ABLE TO LIFT RT.FOOT WITH LT LEG. PT ALSO TRANSFERRS TO TOILET WITH USE OF GRABBAR. PT IS CONTINENT OF B+B BUT NEEDS ASSIST WITH PANTS.PT ABLE TO MANIPULATE W/C AND EATS MEALS IN DINNINGROOM. PT REMAINS ALERT AND ORIENTATED.
[2019-02-23 19:00] VITALS: BP 132/69
[2019-02-24 02:45] LABS: INR 3.2; PROTIME 31.8 Seconds (9.20-11.50)
--- NOTE | 2019-02-24 05:42 | NUR ---
ASSUMED PT CARE AT 1930. PT ALERT AND ORIENTED X4, POLITE AND COOPERATIVE WITH CARES. CVA WITH RIGHT HEMIPARESIS. PT SITTING UP IN RECLINER AT SHIFT CHANGE. UP TO BAHTROOM X2 TO VOID. LOOSE STOOL X1. PT UP WITH ASSIST OF TWO, GAIT BELT, WHEELCHAIR AND STAND/PIVOT. PT WEARS RIGHT LEG SPLINT AND NASH SLING WHEN OUT OF BED. PRAFO BOOT TO RIGHT FOOT. TAKES PILLS WHOLE WITH WATER. SCD'S BILATERALLY AT HS. WEARS HOME CPAP OVERNIGHT. PT TURNED WHEN AGREEABLE. CALL LIGHT AND FREQUENTLY USED ITEMS WITHIN REACH. HOURLY ROUNDING IN PROGRESS, WILL CONTINUE TO MONITOR.
[2019-02-24 07:41] VITALS: BP 143/77
--- NOTE | 2019-02-24 09:01 | NUR ---
I have reviewed the documentation by CHARLINE SPENCER from 02/23/19 to 02/24/19 and I concur with it. MALAIKA PALMER
[2019-02-24 19:40] VITALS: BP 132/77
--- NOTE | 2019-02-24 19:40 | NUR ---
SITTING UP IN CHAIR WATCHING [employer] GAME ON TV. DENIES DISCOMFORT. HAS RIGHT ARM ELEVATED ON TWO PILLOWS. AFO TO RIGHT LOWER EXTREMITY INTACT. CALL LIGHT AND TV REMOTE BOTH WITHIN REACH.
--- NOTE | 2019-02-25 04:59 | NUR ---
WENT TO BED ABOUT 2129. ASSISTED WITH REPOSITIONING. RESTED QUIETLY WITH CPAP. ASSISTED WITH URINAL. HOURLY ROUNDING IN PROGRESS.
[2019-02-25 08:00] VITALS: BP 146/73
--- NOTE | 2019-02-25 15:25 | NUR ---
I have reviewed the documentation by CHARLINE SPENCER from TODAY to 02/25/19 and I concur with it. MALAIKA PALMER
--- NOTE | 2019-02-25 18:54 | NUR ---
AM ASSESSMENT AND VITAL SIGNS COMPELTED DOCUMENTED. PT WORKED WITH ALL THERAPIES AND CONTINUES TO MAKE PROGRESS. PT WAS FITTED WITH A RIGHT ARM BRACE BUT HE WAS NOT COMFORTABLE IN IT AND HE DEVELOPED EDEMA OF HIS HAND AND FOREARM AFTER WEARING IT FOR 2 HOURS SO BRACE WAS REMOVED. RIGHT ARM KEPT ELEVATED WITH SOME IMPROVEMENT. FALL PRECAUTIONS AND HOURLY ROUNDING CONTINUE.
[2019-02-25 19:55] VITALS: BP 146/74
--- NOTE | 2019-02-25 23:19 | NUR ---
ASSUMED CARE AT 1930. PATIENT RESTED IN RECLINER UNTIL AROUND 2029. UP TO TOILET TO ATTEMPT BM. UP WITH GAIT BELT, STAND PIVOT, GRAB BAR, TWO NURSES FOR SAFETY. ONE NURSE BALANCES PATIENT, WHILE OTHER DOES CLOTHING ADJUSTMENTS AND HYGIENE. NO BM, BUT DID VOID. TO BED WITH STAND PIVOT, GAIT BELT, TWO NURSES FOR SAFETY. NEEDS HELP TO GET RLE INTO BED. PRAFO BOOT (FOOT DROP PREVENTION) TO RLE, AFO SPLINT TO RUE. RUE SUPPORTED WITH TWO PILLOWS. SOME SWELLING IN RT HAND NOTED. DENIES PAIN. ASSISTED WITH POSITIONING. HOURLY ROUNDS CONTINUE. BED ALARM ON.
--- NOTE | 2019-02-26 05:27 | NUR ---
SLEPT ALL NIGHT LONG. NO C/O PAIN. HOURLY ROUNDS CONTINUE. BED ALARM ON. CALL LITE IN REACH.
[2019-02-26 07:55] VITALS: BP 150/67
[2019-02-26 09:08] LABS: ABSOLUTE EOSINOPHILS 0.1 thou/uL (0.0-0.7); ABSOLUTE LYMPHOCYTES 0.8 thou/uL (0.8-5.3); ABSOLUTE MONOCYTES 0.4 thou/uL (0.0-1.2); ABSOLUTE NEUTROPHILS 4.1 thou/uL (1.6-8.1); BASOPHILS 0.4 %; HEMATOCRIT 45.1 % (42.0-52.0); LYMPHOCYTES 14.9 %; MCH 32.9 pg (26.0-34.0); MCHC 35.6 g/dL (28.0-37.0); MCV 92.5 fL (80.0-100.0); MONOCYTES 7.1 %; MPV 9.8 fl. (7.2-11.1); NUCLEATED RBCS 0 /100WBC; PLATELET COUNT* 198 thou/uL (150-400); POLYS 76.6 %; RBC 4.87 mil/uL (4.50-6.00); RDW-CV 13.3 % (10.5-14.5); WBC 5.3 thou/uL (4.0-11.0)
[2019-02-26 09:18] LABS: INR 2.7
[2019-02-26 09:26] LABS: CREATININE 0.9 mg/dL (0.6-1.3); POTASSIUM 3.6 mmol/L (3.5-5.1)
[2019-02-26 20:00] VITALS: BP 142/74
--- NOTE | 2019-02-27 05:21 | NUR ---
ASSUMED PT CARE AT 1930. PT SITTING UP IN RECLINER WATCHING THE [place] UNTIL AROUND 2100. UP TO BATHROOM WITH ASSIST OF ONE TO VOID WITH GAIT BELT, STAND PIVOT, AND WHEELCHAIR. TO BED WITH ASSIST OF ONE, GAIT BELT, STAND PIVOT AND WHEELCHAIR. NEEDS ASSIST GETTING LEGS INTO BED. WEARS PRAFO BOOT ON RIGHT FOOT OVERNIGHT, SPLINT TO RUE. RUE SUPPORTED WITH PILLOWS. PT USED URINAL ONCE OVERNIGHT, STAFF POSITIONED AND EMPTIED. PT DENIES PAIN. TURNED WHEN AGREEABLE. CALL LIGHT AND FREQUENTLY USED ITEMS WITHIN REACH. BED ALARM ON FOR SAFETY. HOURLY ROUNDING IN PROGRESS, WILL CONTINUE TO MONITOR.
[2019-02-27 08:05] VITALS: BP 147/72
--- NOTE | 2019-02-27 17:17 | NUR ---
PATIENT UP IN RECLINER ALL SHIFT, WAFFLE CUSHION IN PLACE. RUE SLING AND RIGHT LEG BRACE IN PLACE WITH TRANSFERS. PATIENT UP WITH GAIT BELT AND WALKER WITH ASSISTANCE. LARGE BM NOTED THIS SHIFT. NO COMPLAINTS OF PAIN. DR. MEI AND Paulette ANDERSON, FACTORY MANAGER BOTH AWARE OF PATIENTS ELIAS HR IN THE AM.
[2019-02-27 20:00] VITALS: BP 145/56
--- NOTE | 2019-02-28 05:08 | NUR ---
ASSUMED PT CARE AT 1930. PT ALERT AND ORIENTED X4, POLITE AND COOPERATIVE WITH CARES. SITTING UP IN RECLINER WATCHING THE [place] AT SHIFT CHANGE. UP TO BATHROOM WITH ASSIST OF ONE TO VOID WITH GAIT BELT, STAND PIVOT AND WHEELCHAIR. STOOL X1 THIS SHIFT. NEEDS ASSIST GETTING LEGS INTO BED. WEARS PRAFO BOOT ON RIGHT FOOT OVERNIGHT, SPLINT TO RUE. RUE SUPPORTED WITH PILLOWS. PT WEARS AFO TO RIGHT FOOT WHEN OUT OF BED WELL SLING TO RUE. PT DENIES PAIN. USES CALL LIGHT APPROPRIATELY.
[2019-02-28 08:00] VITALS: BP 150/75
--- NOTE | 2019-02-28 16:04 | NUR ---
ASSUMMED CARE OF PT AT 0730, PT ALERT AND ORIENTED, TRANSFERS WITH ASSIST OF 1, GB WALKER, HAS BRACE TO RIGHT LEG AND WEARS SLING TO RIGHT ARM, DENIES PAIN, COMPLAINED OF TINGLING IN LEFT FINGERS THIS AM, PILLOW PLACED UNDER ARM AND PT STATED TINGLING SUBSIDED, POSSIBLE DUE TO ARM BEING ON HARD SURFACE OF ARMREST, BM X 1 THIS SHIFT, VOIDS PER TOILET, PARTICIPATED IN ALL THERAPIES, HOURLY ROUNDING COMPLETED, ASSESSMENT COMPLETE, WILL CONTINUE TO MONITOR,
--- NOTE | 2019-02-28 16:20 | NUR ---
I have reviewed the documentation by CHARLINE SPENCER from TODAY to 02/28/19 and I concur with it. MALAIKA PALMER
[2019-02-28 20:00] VITALS: BP 146/81
--- NOTE | 2019-03-01 05:01 | NUR ---
ASSUMED PT CARE AT 1930. PT ALERT AND ORIENTED X4, POLITE AND COOPERATIVE WITH CARES. SITTING UP IN RECLINER WATCHING [place] BASEBALL AT SHIFT CHANGE. UP TO BATHROOM WITH ASSIST OF ONE TO VOID WITH GAIT BELT, STAND/PIVOT AND WHEELCHAIR. NO STOOL THIS SHIFT. NEEDS ASSIST GETTING LEGS INTO BED. WEARS PRAFO BOOT ON RIGHT FOOT OVERNIGHT, SPLINT TO RUE. RUE SUPPORTED WITH PILLOWS. PT WEARS AFO TO RIGHT FOOT WHEN OUT OF BED WELL SLING TO RUE. DENIES PAIN. SLEPT WELL OVERNIGHT. CALL LIGHT AND FREQUENTLY USED ITEMS WITHIN REACH. USES CALL LIGHT APPROPRIATELY. HOURLY ROUNDING IN PROGRESS, WILL CONTINUE TO MONITOR.
[2019-03-01 07:50] VITALS: BP 137/70
--- NOTE | 2019-03-01 11:07 | NUR ---
SW met with pt in preparation for team conference tomorrow. Pt pleased with pt progress on rehab and in therapies; pt hopeful pt will be able to remain on ARU at least another week to continue to work towards pt goal. Pt shared that pt children helped with putting in a sidewalk to the entrance of their home. Pt expressed interest in HH services at dc; also pt will need recommended DME at dc; SW to continue to follow to assist with safe dc planning.
--- NOTE | 2019-03-01 15:38 | NUR ---
I have reviewed the documentation by CHARLINE SPENCER from TODAY to 03/01/19 and I concur with it. MALAIKA PALMER
--- NOTE | 2019-03-01 15:38 | NUR ---
ASSUMMED CARE OF PT AT 0730, PT ALERT AND ORIENTED, PT TRANSFERS WITH MIN/MOD ASSIST GB WALKER CUEING, RIGHT LEG BRACE ON, SLING TO RIGHT ARM, AMBULATED TO BATHROOM X 1, GAIT SLOW, BUT STEADY WITH WALKER, TO DININGROOM FOR LUNCH, TAKING FOOD AND FLUIDS WELL, DENIES PAIN, COMPLAINED OF SLIGHT TINGLING IN LEFT HAND, ARM NOTED TO BE LAYING ON HARD ARM REST OF CHAIR, PILLOW PLACED UNDER ARM AND SYMPTOMS RELIEVED,PT REMAINS BRADYCARDIC, PHYSCIAN AWARE, BM X1, PARTICPATED IN ALL THERAPIES, HOURLY ROUNDING COMPLETED, ASSESSMENT COMPLETE, WILL CONTINUE TO MONITOR.
[2019-03-01 19:10] VITALS: BP 133/68
--- NOTE | 2019-03-02 05:07 | NUR ---
ALERT AND ORIENTED. PLEASANT. RIGHT SIDE WEAKNESS. NASH SPLINT IN BED. RLE PRAFO BOOT. CPAP AT NIGHT. MOD ASSIST WITH GAIT BELT AND W/C. UP TO BATHROOM. NEEDS ASSIST WITH CARES. SLEPT WELL. CALL LIGHT IN REACH AND BED ALARM ON.
[2019-03-02 07:00] VITALS: BP 140/74
--- NOTE | 2019-03-02 14:22 | NUR ---
MAMTA and Dr Camejo met with pt and pt to review team conference summary and plan for pt to remain on rehab unit to continue therapies one more week with possible dc home with next Thursday after team conference 03/09. Pt and pt in agreement with plan and are pleased with pt progress. SW to continue to follow to assist with safe dc planning.
--- NOTE | 2019-03-02 15:00 | NUR ---
PATIENT ALERT AND ORIENTED X 4, PATIENT LIMITED TO EXTENSIVE WITH TRANSFERS. USES WHEELCHAIR TO GO TO BATHROOM. PULLS SELF UP WITH GRAB BAR. DENIES COMPLAINTS OF PAIN OR DISCOMFORT. NO SIGN OF DISTRESS. CONT. WITH CURRENT PLAN OF CARE AT THIS TIME.
--- NOTE | 2019-03-02 16:25 | NUR ---
I have reviewed the documentation by CHARLINE SPENCER from TODAY to 03/02/19 and I concur with it. MALAIKA PALMER
[2019-03-02 19:38] VITALS: BP 134/69
--- NOTE | 2019-03-02 22:43 | NUR ---
ASSUMED CARE AT 1915. PATIENT RESTED IN RECLINER UNTIL AROUND 2099. VOIDED PER TOILET, WENT TO BR PER W/C. UP WITH LIFTING ASSIST, SLING TO RUE, GAIT BELT, STAND PIVOT, GRAB BAR. NURSING DOES CLOTHING ADJUSTMENT AND HYGIENE. TO BED, STAND PIVOT, LIFTING ASSIST, ASSIST WITH LEGS INTO BED. PLACED PRAFO BOOT ON RLE, SPLINT ON RT HAND. ELEVATED ON TWO PILLOWS. CPAP PLACED BY PATIENT, NURSING TURNED MACHINE ON. TAKES PILLS WHOLE WITH WATER. SCD'S ON BILAT. RLE ON PILLOW, HEEL OFFLOADED. NO C/O PAIN. HOURLY ROUNDS CONTINUE. BED ALARM ON. CALL LITE IN REACH.
[2019-03-03 08:00] VITALS: BP 135/67
[2019-03-03 19:45] VITALS: BP 147/69
--- NOTE | 2019-03-03 19:45 | NUR ---
SITTING UP IN RECLINER WITH LEGS ELEVATED WATCHING TV. IN GOOD SPIRITS. DENIES DISCOMFORT. DECLINED OFFER OF A SNACK. HAS RIGHT AFO ON. RIGHT ARM ELEVATED ON A PILLOW. CALL LIGHT WITHIN REACH.
--- NOTE | 2019-03-04 06:07 | NUR ---
RESTED SOUNDLY UNTIL 0550 WITH CPAP, SCD'S, RIGHT PRAFO BOOT, RIGHT ARM IN A BRACE AND ELEVATED ON TWO PILLOW. UP TO THE BATHROOM THIS MORNING TO VOID AND STATES PASSED SOME FLATUS. NO COMPLAINTS VOICED. HOURLY ROUNDING IN PROGRESS.
[2019-03-04 08:35] VITALS: BP 140/66
--- NOTE | 2019-03-04 13:56 | NUR ---
Nutrition: Consult received for "diet." Per RN Lis, pt received heart healthy/nectar tray last night. He is on Regular diet. Spoke with kitchen, they realize it was a mistake last night, looking at his previous diet order. The diet order is a little confusing in [facility]. RD ordering Regular diet again to help clarify.
--- NOTE | 2019-03-04 17:59 | NUR ---
pt calls for assist to ambulate to bathroom from recliner. pt ambulates with walker,gaitbelt and min assist of 1 with slow gait. pt wears afo to rt.lower leg. pt voids well and has had small soft bm's today. pt denies pain.pt is continent of b+b. per toilet. pt remains alert and orientated and progresses slowly. here during day and assists pt.
[2019-03-04 19:51] VITALS: BP 137/71
--- NOTE | 2019-03-04 22:03 | NUR ---
ASSUMED CARE AT 1914. PATIENT RESTING IN RECLINER UNTIL AROUND 2044. UP WITH SBA, GAIT BELT, WALKER, RT AFO. GAIT SLOW, BUT PATIENT CAN LIFT RLE WITH AMBULATION. VOIDS PER TOILET. DID ALL CARES. TO BED, ABLE TO GET RLE INTO BED PER SELF. TAKES PILLS WHOLE WITH WATER. APPLIES CPAP PER SELF WITH ONLY ASSIST BY NURSING OF TURNING IT ON. RUE UP ON TWO PILLOWS, SPLINT IN PLACE. RT PRAFO BOOT ON. SCDS IN PLACE. TURNS SELF. MEDICATED FOR NECK AND GENERALIZED PAIN AT HS. HOURLY ROUNDS CONTINUE. BED ALARM ON. CALL LITE IN REACH.
--- NOTE | 2019-03-05 05:40 | NUR ---
SLEPT MOST OF THE NIGHT EXCEPT TO VOID. STEADYING ASSIST NEEDED AFTER RISING FROM TOILET, BUT CORRECTED SELF WITH VERBAL CUES. NO C/O PAIN. HOURLY ROUNDS CONTINUE. BED ALARM ON. CALL LITE IN REACH.
[2019-03-05 07:50] VITALS: BP 145/79
--- NOTE | 2019-03-05 17:53 | NUR ---
PATIENT RESTING UP IN CHAIR. PATIENT IS UP WITH MINIMAL ASSIST WITH GAIT BELT AND WALKER. PATIENT USES TOILET WITH STOOL RISER. PATIENT NEEDS ASSISTANCE WITH CLEANSING. PATIENT DENIES ANY PAIN. PATIENTDENIES ANY NEEDS AT THIS TIME. CALL LIGHT WITHIN REACH. WILL CONTINUE TO MONITOR.
[2019-03-05 20:00] VITALS: BP 134/79
--- NOTE | 2019-03-05 20:00 | NUR ---
SITTING IN RECLINER WITH LEGS ELEVATED. RIGHT ARM ELEVATED ON [address]OWS. RIGHT AFO IN PLACE. DENIES DISCOMFORT. IN GOOD SPIRITS. EXCITED ABOUT GOOD NEWS RECEIVED FROM [facility] IN [place]. CALL LIGHT WITHIN REACH.
--- NOTE | 2019-03-06 05:24 | NUR ---
RESTED SOUNDLY WITH CPAP. HAS RIGHT HAND SPLINT ON. RIGHT ARM ELEVATED ON 2 PILLOWS. RIGHT PRAFO BOOT IN PLACE. HOURLY ROUNDING IN PROGRESS.
[2019-03-06 07:35] VITALS: BP 137/66
--- NOTE | 2019-03-06 17:46 | NUR ---
PATIENT RESTING UP IN CHAIR. PATIENT HAD COMPLAINTS OF SHOULDER PAIN THIS AM, TREATED WITH TYLENOL. PATIENT IS UP WITH ASSISTANCE WITH WALKER AND GAIT BELT. PATIENT WALKED IN HALLS WITH A SHUFFLED GAIT WITH MINIMAL ASSIST THIS AFTERNOON. PATIENT HAS GOOD APPETITE. PATIENT DENIES ANY NEEDS AT THIS TIME. CALL LIGHT WITHIN REACH. WILL CONTINUE TO MONITOR.
[2019-03-06 19:32] VITALS: BP 123/71
--- NOTE | 2019-03-07 00:47 | NUR ---
ASSUMED CARE @ 1934-03/06-SUN.SITS IN RECLINER WATCHING TV.CHAIR ALARM ALREADY ON @ 1934.WEARS BRACE RIGHT FOOT.RUE UP ON 2 PILLOWS.WEARS SLING @ 2044 TO GO TO TOILET PER W/C.MIN ASSIST TO TRANSFER W/ GB/WALKER.TO BED @ 2054.HOB UP. WANTS SIDERAILS X3 UP.BED ALARM PUT ON @ 2054.SPLINT TO RIGHTB HAND APPLIED @ 2054.PRAFO BOOT APPLIED TO RIGHT FOOT @ 2099 & RT FOOT UP ON ONE PILLOW.SHARYN. SCD'S ON @ 2099.C PAP APPLIED @ 2104.MOVES SLIGHTLY RUE & RLE.ON HOURLY ROUNDS.
--- NOTE | 2019-03-07 05:09 | NUR ---
SLEEPING SINCE 2300 & SLEPT GOOD ALL NIGHT.AWAKE @ 0230 FOR BRP PER W/C #2. MIN ASSIST FOPR TRANSFER.REFUSED HS SNACK.LEFT GROIN STILL RED.PRN NYSTATIN POWDER APPLIED AFTER CLEANING & DRYING WELL @ 0230.
[2019-03-07 07:52] VITALS: BP 144/75
[2019-03-07 20:50] VITALS: BP 151/74
--- NOTE | 2019-03-08 01:15 | NUR ---
ASSUMED CARE @ 1914-03/07-THURSDAY.SITS IN RECLINER W/ LE'S UP.CHAIR ALARM ALREADY ON @ 1914.RUE UP ON 2 PILLOWS.MOVES RUE BETTER ABOVE HEAD & TO LEFT UE.WEARS SLING WHEN UP TO W/C FOR BRP @ 2049.HOB UP IN BED.SIDERAILS X4 UP.RIGHT HAND SPLINT APPLIED @ 2104.BED ALARM PUT ON @ 2104.PRAFO BOOT APPLIED @ 2109 & SCD'S ALSO.C PAP PUT ON @ 2114.ON HOURLY ROUNDS.
[2019-03-08 05:10] LABS: ABSOLUTE EOSINOPHILS 0.1 thou/uL (0.0-0.7); ABSOLUTE LYMPHOCYTES 0.9 thou/uL (0.8-5.3); ABSOLUTE MONOCYTES 0.5 thou/uL (0.0-1.2); ABSOLUTE NEUTROPHILS 3.5 thou/uL (1.6-8.1); EOSINOPHILS 1.6 %; HEMATOCRIT 41.8 % (42.0-52.0); HEMOGLOBIN 14.6 gm/dL (14.0-18.0); LYMPHOCYTES 18.1 %; MCH 32.2 pg (26.0-34.0); MCHC 34.9 g/dL (28.0-37.0); MCV 92.2 fL (80.0-100.0); MONOCYTES 9.9 %; MPV 9.8 fl. (7.2-11.1); NUCLEATED RBCS 0 /100WBC; PLATELET COUNT* 173 thou/uL (150-400); POLYS 69.4 %; RBC 4.53 mil/uL (4.50-6.00); RDW-CV 13.1 % (10.5-14.5)
--- NOTE | 2019-03-08 05:17 | NUR ---
SLEPING SINCE 2300 & SLEPT GOOD ALL NIGHT.BRP PER W/C X2.HAD MOD BM @ 0130. SEE PAIN MANAGEMENT @ 0149.REFUSED HS SNACK.
[2019-03-08 05:21] LABS: CALCIUM 8.8 mg/dL (8.5-10.1); CREATININE 0.9 mg/dL (0.6-1.3); POTASSIUM 3.6 mmol/L (3.5-5.1)
[2019-03-08 05:22] LABS: INR 2.9; PROTIME 28.7 Seconds (9.20-11.50)
[2019-03-08 08:30] VITALS: BP 104/76
--- NOTE | 2019-03-08 15:56 | NUR ---
I have reviewed the documentation by CHARLINE SPENCER from 03/07/19 to 03/08/19 and I concur with it. MALAIKA PALMER
--- NOTE | 2019-03-08 16:41 | NUR ---
pt ambulates slowley to bathroom and back to recliner. pt is continent of b+b and is able to wipe self with glove and steading of 1.pt transferrs well with min to stand on occasion. pt denies pain and remains alert and orientated. pt eats meals in dinningroom.pt is egar to increase strength to rt arm.
--- NOTE | 2019-03-08 16:46 | NUR ---
SW met with pt and pt who presented concerns with possible dc tomorrow and were hopeful for more time due to the improvement that they experienced after more OT with pt arm/shoulder. Pt very encouraged with more return in mobility and ROM and is hopeful to be able to receive more therapy to continue to make more progress in that area. Pt hopeful for this plan as well. SW to address with team tomorrow in team conference and SW to continue to follow to assist with safe dc planning.
[2019-03-08 21:00] VITALS: BP 142/74
--- NOTE | 2019-03-09 00:16 | NUR ---
ASSUMED CARE @ 1911-03/08-.SITS IN RECLINER W/ LE'S UP.VISITING W/ SON & HIS @ THIS TIME.RUE UP ON 2 PILLOWS.CHAIR ALARM ON ALREADY @ 1918.BRACE RIGHT FOOT IN PLACE.SLING TO RUE WHEN OUT OF BED.RIGHT HAND SPLINT, SCD'S SHARYN., & RIGHT PRAFO BOOT ALL APPLIED @ 2054.RIGHT LE UP ON A PILLOW WHILE IN BED. BED ALARM PUT ON @ 2054.C PAP PUT ON @ 2109.ON HOURLY ROUNDS.
--- NOTE | 2019-03-09 05:20 | NUR ---
SLEEPING SINCE 2199 & SLEPT GOOD ALL NIGHT.REFUSED HS SNACK.BRP PER W/C X2 @ 2039 & 209.
[2019-03-09 07:40] VITALS: BP 156/72
--- NOTE | 2019-03-09 16:02 | NUR ---
SW and Dr Camejo met with pt and pt to review team conference summary and plan for pt to dc home on Thursday with HH vs OP services to follow. Team recommending OP services; SW to discuss with pt/pt prior to dc. Pt may have access to a RW already; SW to make sure pt/pt do not want SW to order a new one through their insurance. Possible copay of 20 %; also possible for transfer tub bench and will provide info/resources if needed. Pt and pt pleased with a couple more days of therapies. SW to continue to follow to assist with safe dc planning.
--- NOTE | 2019-03-09 17:35 | NUR ---
PATIENT RESTING UP IN CHAIR. PATIENT DENIES ANY PAIN. PATIENT WORKED WITH THERAPIES TODAY. PATIENT IS UP MINIMAL ASSIST WITH WALKER AND GAIT BELT. PATIENT USES BATHROOM, NEEDS ASSISTANCE WITH HYGIENE. PATIENT HAS GOOD APPETITE. PATIENT DENIES ANY NEEDS AT THIS TIME. CALL LIGHT WITHIN REACH. WILL CONTINUE TO MONITOR.
[2019-03-09 20:00] VITALS: BP 143/68
--- NOTE | 2019-03-10 05:14 | NUR ---
ASSUMED PT CARE AT 1930. PT ALERT AND ORIENTED X4, POLITE AND COOPERATIVE WITH CARES. SITTING UP IN RECLINER WATCHING BASEBALL AT SHIFT CHANGE. UP TO BATHROOM WITH MIN ASSIT, GAIT BELT AND WALKER. RIGHT ARM FLACCID. SLIDES RIGHT FOOT. STOOL X1 THIS SHIFT, PT NEEDS ASSIST WITH HYGIENE. WEARS PRAFO BOOT ON RIGHT FOOT OVERNIGHT. WEARS HOME CPAP. RUE SUPPORTED WITH PILLOWS. PT DENIES PAIN. USES CALL LIGHT APPROPRIATELY. CALL LIGHT AND FREQUENTLY USED ITEMS WITHIN REACH. BED ALARLM ON FOR SAFETY. HOURLY ROUNDING IN PROGRESS, WILL CONTINUE TO MONITOR.
[2019-03-10 07:30] VITALS: BP 129/67
--- NOTE | 2019-03-10 15:06 | NUR ---
I have reviewed the documentation by CHARLINE SPENCER from 03/09/19 to 03/09/19 and I concur with it. MALAIKA PALMER
--- NOTE | 2019-03-10 17:44 | NUR ---
PATIENT RESTING UP IN CHAIR. PATIENT HAS HAD COMPLAINTS OF RIGHT WRIST PAIN, TREATED ADEQUATELY WITH TYLENOL AND ELEVATION. PATIENT HAD CT OF RIGHT WRIST THIS AFTERNOON WITHOUT INCIDENT. PATIENT IS UP WITH MODERATE ASSIST FOR TRANSFER AND MINIMAL ASSIST FOR AMBULATION WITH WALKER. PATIENT USES TOILET AND NEEDS ASSIST WITH HYGIENE. PATIENT HAS GOOD APPETITE. PATIENT DENIES ANY NEEDS AT THIS TIME. CALL LIGHT WITHIN REACH. WILL CONTINUE TO MONITOR.
[2019-03-10 20:00] VITALS: BP 133/79
--- NOTE | 2019-03-11 05:21 | NUR ---
ASSUMED PT CARE AT 1930. PT ALERT AND ORIENTED X4, POLITE AND COOPERATIVE WITH CARES. PT STATES THAT PAIN TO RIGHT HAND AND WRIST HAS IMPROVED. PT SITTING UP IN RECLINER WATCHING BASEBALL AT SHIFT CHANGE. UP TO BATHROOM WITH MIN ASSIST, GAIT BELT AND WALKER. STOOL X1 THIS SHIFT, PT NEEDS ASSIST WITH HYGIENE. RIGHT ARM FLACCID, SLIDES RIGHT FOOT WHEN WALKING. WEARS PRAFO BOOT ON RIGHT FOOT OVERNIGHT. WEARS HOME CPAP. RUE SUPPORTED WITH PILLOWS. USES CALL LIGHT APPROPRIATELY. CALL LIGHT AND FREQUENTLY USED ITEMS IN REACH. BED ALARM ON FOR SAFETY. HOURLY ROUNDING IN PROGRESS, WILL CONTINUE TO MONITOR.
[2019-03-11 07:53] VITALS: BP 147/71
[2019-03-11 10:11] LABS: PROTIME 29.5 Seconds (9.20-11.50)
--- NOTE | 2019-03-11 13:56 | NUR ---
ASSUMED CARE AT 0730. ALERT ORIENTED PLEASANT COOPERATIVE. HX OF CVA RT. SIDE WEAKNESS. RT. ARM ELEVATED ON PILLOWS WHEN UP IN RECLINER AT BEDSIDE. PARTICIPATING IN THERAPIES THROUGHOUT THE DAY. DENIES PAIN OR CONCERNS. USES CALL LIGHT APPROPRIATELY FOR ASSIST. AMBULATES TO BR WITH WALKER AND RT. LE AFO BRACE. VOIDS IN TOILET AND IS ABLE TO MANAGE CLOTHING ADJUSTMENTS. FEEDS SELF AND TAKES MEDS WITHOUT DIFFICULTY. DR. HERMAN AND SIGIFREDO VERMA. HERE LATER MORNING TIME.
[2019-03-11 15:16] VITALS: BP 147/71
[2019-03-11 15:18] VITALS: BP 147/71
[2019-03-11 15:25] VITALS: BP 147/71
--- NOTE | 2019-03-11 15:27 | NUR ---
Pt to dc home with tomorrow, Monday 03/12. OP therapy PT and OT services to follow; pt and pt preference for [facility] OP therapy and SW prepared fax cover sheet to be faxed with final order after Dr Camejo signs dc order for OP PT OT tomorrow. [place] [phone]. SW spoke with pt and pt about dc plan, provided stair lift script from Dr Camejo. Pt already has rolling walker. Pt will provide pt ride home.
--- NOTE | 2019-03-11 18:32 | NUR ---
PT. HAS BEEN UP IN RECLINER MUCH OF THE DAY. VISITORS IN ROOM AT SUPPER TIME.
[2019-03-11 19:56] VITALS: BP 137/77
--- NOTE | 2019-03-12 05:15 | NUR ---
ASSUMED PT CARE AT 1930. PT ALERT AND ORIENTED X4, POLITE AND COOPERATIVE WITH CARES. PT SITTING UP IN RECLINER WATCHING BASEBALL AT SHIFT CHANGE ANTICIPATING DISCHARGE HOME TODAY. UP TO BATHROOM WITH MIN ASSIST, GAIT BELT AND WALKER. NO STOOL THIS SHIFT. RIGHT ARM WEAK, SLIDES RIGHT FOOT WHEN WALKING. WEARS PRAFO BOOT ON RIGHT FOOT OVERNIGHT. WEARS HOME CPAP. RUE SUPPORTED WITH PILLOWS. USES CALL LIGHT APPROPRIATELY. CALL LIGHT AND FREQUENTLY USED ITEMS IN REACH. BED ALARM ON FOR SAFETY. HOURLY ROUNDING IN PROGRESS, WILL CONTINUE TO MONITOR.
[2019-03-12 07:20] LABS: INR 2.9; PROTIME 28.2 Seconds (9.20-11.50)
[2019-03-12 08:02] VITALS: BP 145/74
[2019-03-12] MEDS ORDERED: SERTRALINE HCL50 MG PO (10:50)
--- NOTE | 2019-03-12 11:53 | NUR ---
Received order from physician to arrange for home INR machine for pt. Asked unit CM to follow-up on Thursday to obtain home INR machine.
--- NOTE | 2019-03-12 13:18 | NUR ---
ASSUMMED CARE OF PT AT 0730, PT ALERT AND ORIENTED, PT TRANSFERS WITH SBA GB WALKER, SLIGHT STEADYING OCCASIONALLY, DENIES PAIN, TAKING FOOD AND FLUIDS WELL, HAD LUNCH IN DININGROOM, AMBULATES TO VOID PER TOILET, PARTICIPATED IN MORNING THERAPIES,ASSESSMENT COMPLETE, ORDERS OBTAINED FOR DISCHARGE, DISCUSSED HOME MEDICATIONS WITH PT AND , DISCUSSED FOLLOW UP APPTS, LAB TO BE DRAWN NEXT WEEK, OUTPT PT AND OT, HADOOP ANALYST TO FOLLOW UP ON THURSDAY TO OBTAIN A INR HOME MONITOR, PT INSTRUCTED ON FALL RISK, SCRIPTS GIVEN FOR NEW MEDICATIONS, QUESTIONS ANSWERED, STATED UNDERSTANDING OF INSTRUCTONS, HOME MEDICATION RETURNED TO , HOURLY ROUNDING COMPLETED, EXCORTED TO MAIN ENTRANCE PER W/C, BELONGINGS SENT WITH PT INCLUDING WALKER FOR HOME.
== END 2019-03-12 13:15 | disposition home or self-care (01) | DRG 56 ==
LOC: M.REH 13:26
PROVIDERS: Family Medicine; Internal Medicine; ADMIT Physical Medicine & Rehabilitation
DX: I69.351 Hemiplegia and hemiparesis following cerebral infarction affecting right dominant side (principal); I63.9 Cerebral infarction, unspecified; R47.1 Dysarthria and anarthria; G40.909 Epilepsy, unspecified, not intractable, without status epilepticus; I10 Essential (primary) hypertension; E78.5 Hyperlipidemia, unspecified; R29.810 Facial weakness; R00.1 Bradycardia, unspecified; Z95.2 Presence of prosthetic heart valve; Z79.01 Long term (current) use of anticoagulants

== ENCOUNTER → 2019-03-16 | Outpatient (CLI) | payer OTHER ==
[~2019-03-16] MED LIST changes: +SERTRALINE HCL50 MG PO
[2019-03-16 10:26] LABS: INR 2.6; PROTIME 25.9 Seconds (9.20-11.50)
== END ==
LOC: M.LAB 09:56
PROVIDERS: Internal Medicine
DX: I63.9 Cerebral infarction, unspecified (principal)

== ENCOUNTER 2020-07-03 05:21 | Emergency (ER) | payer OTHER ==
[~2020-07-03] VITALS: Ht 180.3 cm; Wt 79.8 kg
[2020-07-03] MEDS ORDERED: NORVASC 2.5 MG2.5 M1 (05:35)
[2020-07-03 05:59] LABS: HEMATOCRIT 49.3 % (42.0-52.0); HEMOGLOBIN 17.1 gm/dL (14.0-18.0); MCH 31.4 pg (26.0-34.0); MCHC 34.7 g/dL (28.0-37.0); MCV 90.5 fL (80.0-100.0); MPV 9.1 fl. (7.2-11.1); NUCLEATED RBCS 0 /100WBC; PLATELET COUNT* 206 thou/uL (150-400); RBC 5.45 mil/uL (4.50-6.00); RDW-CV 13.4 % (10.5-14.5); WBC 11.9 thou/uL (4.0-11.0)
[2020-07-03 06:10] LABS: CALCIUM 8.9 mg/dL (8.5-10.1); POTASSIUM 5.1 mmol/L (3.5-5.1)
[2020-07-03 06:15] LABS: ALBUMIN 3.9 g/dL (3.4-5.0); TOTAL BILIRUBIN 1.3 mg/dL (<0.1-1.0); TOTAL PROTEIN 7.5 g/dL (6.4-8.2)
[2020-07-03 06:29] LABS: ABSOLUTE LYMPHOCYTES 0.2 thou/uL (0.8-5.3); ABSOLUTE MONOCYTES 0.4 thou/uL (0.0-1.2); ABSOLUTE NEUTROPHILS 11.3 thou/uL (1.6-8.1); PLATELET ESTIMATE ADEQUATE
[2020-07-03 06:30] LABS: ANISOCYTOSIS 1+; POIKILOCYTOSIS 1+
[2020-07-03 06:54] LABS: URINE BILIRUBIN NEGATIVE (Negative); URINE BLOOD 3+ (Negative); URINE CLARITY CLEAR; URINE COLOR YELLOW; URINE GLUCOSE-RANDOM NEGATIVE (Negative); URINE KETONES 1+ (Negative); URINE LEUKOCYTES-REFLEX NEGATIVE (Negative); URINE NITRITE-REFLEX NEGATIVE (Negative); URINE PROTEIN 1+ (Negative); URINE UROBILINOGEN 0.2 E.U./dl (0.2-1.0)
[2020-07-03 07:05] LABS: SQUAMOUS 0-3 Few /LPF (0-3); URINE WBC-REFLEX 0-5 Rare /HPF (0-5)
[2020-07-03 07:06] LABS: BACTERIA-REFLEX 1-9 Few /HPF (None Seen); CASTS None Seen /LPF (None Seen); CRYSTALS None Seen /LPF (None Seen); MUCUS 0-3 Light strn/LPF (None Seen)
[2020-07-03] MEDS ORDERED: CIPROFLOXACIN500 M1 PO (07:56)
[2020-07-03] MEDS ORDERED: FLOMAX0.4 MG PO (07:56)
[2020-07-03] MEDS ORDERED: PERCOCET 5-3251 EACH PO (07:56)
[2020-07-03 08:46] VITALS: BP 142/73
== END 2020-07-03 08:46 | disposition home or self-care (01) ==
LOC: M.ERS 05:21
PROVIDERS: Personal Emergency Response Attendant
DX: N13.2 Hydronephrosis with renal and ureteral calculous obstruction (principal); I10 Essential (primary) hypertension; E78.5 Hyperlipidemia, unspecified; Z79.899 Other long term (current) drug therapy

== ENCOUNTER 2021-02-18 13:03 | Emergency (ER) | payer OTHER ==
[~2021-02-18] VITALS: Ht 180.3 cm; Wt 79.4 kg
[~2021-02-18 13:03] MED LIST changes: +CIPROFLOXACIN500 M1 PO; +FLOMAX0.4 MG PO; +NORVASC 2.5 MG2.5 M1; +PERCOCET 5-3251 EACH PO
[2021-02-18 14:17] LABS: ABSOLUTE EOSINOPHILS 0.1 thou/uL (0.0-0.7); ABSOLUTE LYMPHOCYTES 1.2 thou/uL (0.8-5.3); ABSOLUTE MONOCYTES 0.5 thou/uL (0.0-1.2); ABSOLUTE NEUTROPHILS 4.4 thou/uL (1.6-8.1); BASOPHILS 0.6 %; EOSINOPHILS 1.3 %; HEMATOCRIT 45.1 % (42.0-52.0); HEMOGLOBIN 15.8 gm/dL (14.0-18.0); LYMPHOCYTES 18.9 %; MCH 31.6 pg (26.0-34.0); MCHC 35.1 g/dL (28.0-37.0); MONOCYTES 8.7 %; MPV 9.1 fl. (7.2-11.1); NUCLEATED RBCS 0 /100WBC; PLATELET COUNT* 192 thou/uL (150-400); POLYS 70.5 %; RBC 5.01 mil/uL (4.50-6.00); RDW-CV 13.4 % (10.5-14.5); WBC 6.2 thou/uL (4.0-11.0)
[2021-02-18 14:26] LABS: CALCIUM 8.6 mg/dL (8.5-10.1); POTASSIUM 3.7 mmol/L (3.5-5.1)
[2021-02-18 14:29] LABS: APTT 42.1 Seconds (25.0-31.3); INR 3.8; PROTIME 37.3 Seconds (9.20-11.50)
[2021-02-18 14:36] LABS: ALBUMIN 3.6 g/dL (3.4-5.0); TOTAL BILIRUBIN 1.2 mg/dL (<0.1-1.0); TOTAL PROTEIN 6.8 g/dL (6.4-8.2)
[2021-02-18 14:55] LABS: URINE BILIRUBIN NEGATIVE (Negative); URINE BLOOD NEGATIVE (Negative); URINE CLARITY CLEAR; URINE COLOR YELLOW; URINE GLUCOSE-RANDOM NEGATIVE (Negative); URINE KETONES NEGATIVE (Negative); URINE LEUKOCYTES-REFLEX NEGATIVE (Negative); URINE NITRITE-REFLEX NEGATIVE (Negative); URINE PROTEIN NEGATIVE (Negative)
[2021-02-18 16:30] VITALS: BP 151/93
--- NOTE | 2021-02-18 17:07 | EKG ---
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[facility] 1940 Requested By: Rian Maria Order Number: [id number] MD: Tereso Simmons Measurements Intervals [place] Rate: 55 P: 16 SD: 203 QRS: 42 QRSD: 129 T: 21 QT: 457 QTc: 438 Interpretive Statements Sinus rhythm Probable left atrial enlargement Right bundle branch block Compared to ECG 02/06/2019 21:13:58 Right bundle-branch block now present Intraventricular conduction delay no longer present T-wave abnormality no longer present Electronically Signed On 02-18-2021 17:07:03 CDT by Tereso Simmons [email or web address] <ELECTRONICALLY SIGNED> By: Tereso Simmons MD, FACC 02/18/21 1707 1352 1352 Tereso Simmons MD, FACC /EPI
== END 2021-02-18 16:30 | disposition short-term general hospital (02) ==
LOC: M.ERS 13:03
PROVIDERS: Family Medicine
DX: S06.5X0A Traumatic subdural hemorrhage without loss of consciousness, initial encounter (principal); Z20.822 Contact with and (suspected) exposure to COVID-19; R79.1 Abnormal coagulation profile; I10 Essential (primary) hypertension; E78.5 Hyperlipidemia, unspecified; Z86.73 Personal history of transient ischemic attack (TIA), and cerebral infarction without residual deficits; W18.39XA Other fall on same level, initial encounter; Y93.89 Activity, other specified; Y92.89 Other specified places as the place of occurrence of the external cause; Y99.8 Other external cause status